=== PATIENT | female | born 1995 | race African-American/Black ===

== ENCOUNTER 2022-04-16 07:21 | Outpatient (RCR) | payer OTHER, SELFPAY ==
[2022-04-14 11:07] LABS: Beta HCG Quantitative < 2.39 mIU/ML
[2022-04-16 08:14] LABS: Beta HCG Quantitative < 2.39 mIU/ML
== END 2022-07-13 23:59 | disposition home or self-care (01) ==
LOC: ANHLAB 07:21
PROVIDERS: Visit Provider Obstetrics & Gynecology Gynecology
DX: O26.851 Spotting complicating pregnancy, first trimester (principal); Z3A.00 Weeks of gestation of pregnancy not specified
CPT/HCPCS: 36415; 84702

== ENCOUNTER 2022-08-25 14:06 | Outpatient (CLI) | payer OTHER, SELFPAY | END 2022-08-25 14:07 | disposition home or self-care (01) | LOC: ANHLAB 14:07 | PROVIDERS: Visit Provider Obstetrics & Gynecology | DX: Z32.01 Encounter for pregnancy test, result positive (principal); Z3A.00 Weeks of gestation of pregnancy not specified | CPT/HCPCS: 36415; 84702 ==

== ENCOUNTER 2022-08-27 13:43 | Outpatient (CLI) | payer OTHER, SELFPAY ==
[2022-08-31 04:22] LABS: Progesterone 5.8 ng/mL (***)
== END 2022-08-27 13:44 | disposition home or self-care (01) ==
PROVIDERS: PCP Registered Nurse; Visit Provider Obstetrics & Gynecology
DX: O09.299 Supervision of pregnancy with other poor reproductive or obstetric history, unspecified trimester (principal); Z3A.00 Weeks of gestation of pregnancy not specified
CPT/HCPCS: 36415; 84144; 84702

== ENCOUNTER 2022-08-28 11:16 | Outpatient (CLI) | payer OTHER, SELFPAY ==
--- NOTE | ~2022-08-28 | US_ITS ---
Pelvic ultrasound. Clinical History: First trimester , inconclusive viability Technique: Realtime transabdominal and transvaginal scanning of the pelvis was performed. Color flow Doppler and Doppler spectral analysis were performed. Findings: The uterus is anteverted. There is an early intrauterine gestational sac. Average sac diame ter of 8 mm corresponds to an estimated gestational age of 5 weeks 4 days. No definite pole or yolk sac seen at this time. The right ovary measures 2.3 x 1.5 x 1.6 cm. No significant right ovarian or adnexal mass is seen. V ascular flow present in the right ovary on Doppler spectral analysis. The left ovary is not visualized. No significant left ovarian or adnexal mass is seen. There is no evidence of free fluid in the cul de sac. Impression: Intrauterine gestational sac with estimated gestational age of 5 weeks 4 days by average sac diameter . No visible pole or yolk sac. This could be commensurate with the early gestational age, and r epresent an early normal . Blighted ovum or missed are not excluded. Continued foll ow-up with serial beta hCG should be considered. Short-term follow-up ultrasound in approximately 1 w [place] to reassess for development of cardiac activity/ pole should also be considered. Reviewed, dictated and finalized at location M. Impression: Intrauterine gestational sac with estimated gestational age of 5 weeks 4 days b y average sac diameter. No visible pole or yolk sac. This could be commen surate with the early gestational age, and represent an early normal . Blighted ovum or missed are not excluded. Continued follow-up with se rial beta hCG should be considered. Short-term follow-up ultrasound in approxim ately 1 week to reassess for development of cardiac activity/ pole should also be considered.
== END 2022-08-28 11:17 ==
PROVIDERS: PCP Obstetrics & Gynecology; Visit Provider Obstetrics & Gynecology
DX: O36.80X0 Pregnancy with inconclusive fetal viability, not applicable or unspecified (principal); Z3A.01 Less than 8 weeks gestation of pregnancy
CPT/HCPCS: 76801; 76817

== ENCOUNTER → 2022-09-04 08:35 | Outpatient (CLI) | payer OTHER, SELFPAY ==
--- NOTE | ~2022-09-04 | US_ITS ---
Pelvic ultrasound. Clinical History: First trimester , abnormal ultrasound finding on screening COMPARISON: 08/28/2022 Technique: Realtime transabdominal and transvaginal scanning of the pelvis was performed. Color flow Doppler and Doppler spectral analysis were performed. Findings: The uterus is anteverted, and contains an intrauterine gestation. Average sac diameter 1.2 cm corresponds to an estimated gestational age of 6 weeks 0 days. No definite pole or yolk sac identified. Neither ovary seen. No adnexal mass seen. There is no evidence of free fluid in the cul de sac. Impression: Intrauterine gestational sac with estimated gestational age of 6 weeks 0 days by average sac diameter , but no visible pole or yolk sac. This raises suspicion for blighted ovum/missed . Ear ly normal remains possible, though felt to be less likely. Correlate clinically. Reviewed, dictated and finalized at [facility]. Impression: Intrauterine gestational sac with estimated gestational age of 6 weeks 0 days b y average sac diameter, but no visible pole or yolk sac. This raises susp icion for blighted ovum/missed . Early normal remains possibl e, though felt to be less likely. Correlate clinically.
== END ==
PROVIDERS: PCP Registered Nurse; Visit Provider Obstetrics & Gynecology
DX: O28.3 Abnormal ultrasonic finding on antenatal screening of mother (principal); Z3A.01 Less than 8 weeks gestation of pregnancy
CPT/HCPCS: 76801; 76817

== ENCOUNTER 2022-09-04 10:08 | Outpatient (CLI) | payer OTHER, SELFPAY | END 2022-09-04 10:09 | disposition home or self-care (01) | PROVIDERS: PCP Registered Nurse; Visit Provider Obstetrics & Gynecology | DX: O28.3 Abnormal ultrasonic finding on antenatal screening of mother (principal); Z3A.00 Weeks of gestation of pregnancy not specified | CPT/HCPCS: 36415; 84702 ==

== ENCOUNTER 2022-09-10 01:18 | Day surgery (SDC) | payer OTHER, SELFPAY ==
[2022-09-05 09:00] VITALS: BMI 37.0
--- NOTE | 2022-09-05 09:02 | PC.NURSE ---
Report to the Outpatient Waiting Room, entrance under the green pavilion located off [facility], at time _0630_ on date _09/10/2022_. Planned Procedure Time: _0830_. Time changes happen often and if your time is changed the preop area will call you the afternoon before. - You and your visitor will be asked to self-screen and do not enter if you have any COVID symptoms. - Only one visitor is requested with a max of two and NO children visitors are allowed at this time. - The patient visitor may be requested to leave or wait in car when not with patient due to distancing restrictions. - A mask is optional within the hospital at this time. Patients may have clear liquids (water, carbonated beverages, clear teas, apple juice) until 3 hours prior to surgery with a maximum of 20 ounces. - No food from midnight until time of surgery Take the following medications with a SIP of water the morning of surgery: __Inhaler DO NOT STOP ANY OF YOUR OTHER PRESCRIPTION MEDICATIONS PRIOR TO SURGERY ?EXCEPT THE FOLLOWING Medications to discontinue per physician None Date to take last dose Please no make-up, nail canadian, hairspray, perfume, deodorant, or body powder the day of surgery. No jewelry (including any body piercings) or valuables the day of surgery, leave them at home. Please take a shower or bath the night before, or the morning of, surgery with an antibacterial soap. Wear comfortable, loose fitting clothing. - Jewelry must be removed prior to entering the operating room. Rings and piercings that are not removed may be cut off. - The hospital will not accept responsibility for valuables. - Please leave all valuables, including medications, at home the day of surgery. If you are going home after surgery, a licensed route delivery driver must drive you home. - NO public transportation without another adult if you receive anesthesia. - We recommend that an adult stay with you for 24 hours following discharge. - We also recommend that you do not drive, make important decision, drink alcoholic beverages, or take any drugs that were not prescribed by your health care provider for at least 24 hours after your discharge time. Follow any additional instructions given to you from your surgeon. If you or anyone in your household have experienced Covid symptoms in the past week, please notify your surgeon or the nurse liaison at the phone number below for possible testing. Telephone instructions given to _Patient____and asked if any additional questions and then verbalized understanding. Patient advised to call surgeon office or pre surgery nurse liaison [phone] if any additional questions.
--- NOTE | 2022-09-09 12:57 | P.PNAN_ITS ---
Anes - Initial Pre Proc Eval Procedure: Operation Date: 09/10/22 08:30 Proposed Procedures p Suction Dilation and Curettage - Kyler Sanchez MD Date/Time: 09/09/22 12:57 Surgeon: Kyler Sacnhez MD Pre Op Diagnosis: Blighted Ovum Patient Data Age: 27 Gender: F Height: 1.68 m Weight: 104 kg Allergies Allergy/AdvReac Type Severity Reaction Status Date / Time hydrogen peroxide Allergy Mild Swelling Verified 09/10/22 07:19 lidocaine Allergy Mild Unknown Verified 09/10/22 07:16 Penicillins Allergy Mild Unknown Verified 09/10/22 07:16 Home Medications Medication Instructions Recorded Confirmed Type albuterol sulfate 90 mcg/actuation 1 puff inhalation Q4H PRN Dyspnea 05/05/22 09/10/22 History aerosol inhaler beclomethasone dipropionate 40 1 inh inhalation Q12H 09/04/22 09/10/22 History mcg/actuation HFA breath activated aerosol (Qvar RediHaler) Patient hx anesthesia problems: none Family hx anesthesia problems: none Results Review: All pre-operative results and documents have been reviewed as part of the pre- operative evaluation. [facility] Past Medical History Medical History (Updated 09/10/22 @ 07:53 by Jalen Long MD) Allergies Asthma History of spontaneous History of vaginal delivery Morbid obesity with BMI of 45.0-49.9, adult Family History Family History Other Alcoholism Asthma Breast cancer Social History Social History Smoking status: Never smoker Alcohol intake: never Substance use: never Substance use type: does not use Living arrangements: with family Spiritual care concerns: No Anes - Eval Final PreProcedure Day of Procedure 09/09/22 12:57 Patient weight: morbidly obese Heart: regular rate and rhythm Lungs: clear to auscultation and normal air movement Airway: Mallampati scale class II Neurological: alert and oriented Last oral intake: >/= 8 hours ASA classification: III Emergent: no Anesthetic plan: proceed Anesthesia type and monitoring: general GIVS and LMA Results Review: All pre-operative results and documents have been reviewed as part of the pre- operative evaluation. Informed Consent: The patient's anesthetic plan and its attendant risks and benefits were discussed with the patient/family/POA. Questions were solicited and answers provided to the satisfaction of the patient/family/POA.
[2022-09-10 06:59] VITALS: BP 130/69; PULSE 87; RESP 16; TEMP 36; O2SAT 98
[2022-09-10] MEDS: ACETAMINOPHEN 500 MG TABLET 1000 MG PO (07:38)
[2022-09-10] MEDS: LACTATED RINGERS 1,000 ML 30 ML IV CONT (07:38)
--- NOTE | 2022-09-10 08:12 | PM.IMHP ---
H&P: [facility] History of Present Illness Date/Time: 09/10/22 08:12 Chief Complaint: Nonviable Narrative: She is a with abnormally rising HCG levels and subsequent ultrasounds showing gestational sac. Findings consistent with blighted ovum. She has been counseled regarding options of expectant managment vs misoprostol vs D and C and has opted for D and C. Review of Systems Review of Systems: All systems reviewed & are unremarkable except as noted in HPI and below Constitutional: Constitutional: Reports no additional constitutional complaints Eyes: Eyes: Reports no additional eye complaints Cardiovascular: Cardiovascular: Reports no additional cardiovascular complaints Respiratory: Respiratory: Reports no additional respiratory complaints Gastrointestinal: Gastrointestinal: Reports no additional gastrointestinal complaints Genitourinary: Genitourinary: Reports no additional female genitourinary complaints and Reports as per HPI Integumentary/Breasts: Skin/Breast: Reports system reviewed and no additional complaints, except as docu Neurologic: Reports system reviewed and no additional complaints, except as documented Psychiatric: Psychiatric: Reports no additional psychiatric complaints Hematologic/Lymphatic: Hematologic/Lymphatic: Reports no additional hematologic/lymphatic complaints [facility] Past Medical History Medical History Allergies Asthma History of spontaneous History of vaginal delivery Morbid obesity with BMI of 45.0-49.9, adult Family History Family History Other Alcoholism Asthma Breast cancer Social History Social History Smoking status: Never smoker Alcohol intake: never Substance use: never Substance use type: does not use Living arrangements: with family Spiritual care concerns: No Meds Home Medications and Allergies Home Medications Medication Instructions Recorded Confirmed Type albuterol sulfate 90 mcg/actuation 1 puff inhalation Q4H PRN Dyspnea 05/05/22 09/10/22 History aerosol inhaler beclomethasone dipropionate 40 1 inh inhalation Q12H 09/04/22 09/10/22 History mcg/actuation HFA breath activated aerosol (Qvar RediHaler) Allergies Allergy/AdvReac Type Severity Reaction Status Date / Time hydrogen peroxide Allergy Mild Swelling Verified 09/10/22 07:19 lidocaine Allergy Mild Unknown Verified 09/10/22 07:16 Penicillins Allergy Mild Unknown Verified 09/10/22 07:16 Vital Signs Vital Signs - 24 hr 09/10/22 06:59 Temperature 96.8 F L Pulse Rate 87 Respiratory Rate 16 Blood Pressure 130/69 Pulse Oximetry 98 Oxygen Delivery Room Air Exam Const: General: comfortable and no acute distress Orientation/consciousness: oriented to person, oriented to place and oriented to time Eyes: General: appearance normal, both eyes and all related structures Neck: Neck: normal visual inspection Resp: Effort & Inspection: normal respiratory effort Auscultation: clear to auscultation bilaterally Cardio: Rate: regular rate Rhythm: regular rhythm GI: Inspection: normal to inspection GI Palp: No abdominal tenderness and Yes No hepatosplenomegaly present : External Female Exam: normal external appearance Speculum Exam - Vagina: normal appearance of the vagina Speculum Exam - Cervix: normal appearance of the cervix Bimanual exam- vagina & uterus: normal bimanual exam, uterine mobility normal, uterine shape normal and non-tender Bimanual Exam- Adnexa, other: no masses and No adnexal tenderness Skin: General skin exam: normal color Neuro: General: oriented to person, oriented to place and oriented to time Psych: Appearance: grossly normal Assessment and Plan Assessment and plan (1) Blighted ovum: Code(s): O02.0 - Blighted ovum and nonhydatidiform
--- NOTE | 2022-09-10 08:16 | WPDHPUPDATE1 ---
History and Physical Update Update Date/Time: 09/10/22 08:16 History and Physical has been reviewed, including an updated exam of the patient. There are NO changes in the patient's condition. Risks, benefits, and alternatives have been discussed and questions answered. Patient agrees to proceed with procedure.
--- NOTE | 2022-09-10 08:38 | PHAR ---
CALLED PRE-OP ABOUT LIDOCAINE ALLERGY W/LIDOCAINE ORDER. OR WILL CHECK WITH MD BEFORE ADMINISTRATION.
[2022-09-10] MEDS: ceFAZolin 3 GM/D5W 100 ML 100 ML IVPB (08:48)
[2022-09-10] MEDS: KETOROLAC 30 MG/ML VIAL (*BKC) IV PUSH (09:06)
[2022-09-10 09:18] VITALS: BP 123/67; PULSE 75; RESP 16; O2SAT 98
[2022-09-10] MEDS: oxyCODONE HCL (*CRX) 5 MG TAB IR PO (09:44)
[2022-09-10 09:45] VITALS: BP 112/58; PULSE 72
[2022-09-10 10:10] VITALS: BP 103/60; PULSE 67
--- NOTE | 2022-09-10 14:24 | W.PM.PROC2 ---
Procedure Note - Detailed Date of Procedure 09/10/22 Pre-op Diagnosis Blighted Ovum Post-op Diagnosis Same Procedure Performed Suction dilation and curettage Surgeon Kyler Sanchez MD Anesthesia MAC and Local Indications abnormally rising HCG levels and empty gestational sac consistent with blighted ovum Findings uterus sound to 9 cm Description of Procedure after informed consent was obtained patient was taken to operating room and adequate IV sedation was administered. She was placed in high lithotomy position and prepped and draped in sterile fashion. Attention was turned to the vagina speculum was inserted single-tooth tenaculum placed on anterior lip of the cervix due to her allergy to lidocaine a cervical block was not performed. The cervix was dilated to an 8 Melgar dilator. A size 8 suction curette was passed until no tissue was obtained. There was a small amount of tissue. The uterine cavity was sharply curetted. The suction was passed again due to feeling residual tissue at the fundus. The cavity was sharply curetted again and good cry was noted in all quadrants. Hemostasis was noted at the cervix single-tooth tenaculum removed hemostasis was noted at this site. Speculum was removed sponge count was correct. Patient tolerated procedure well and was taken to recovery in stable condition. Estimated Blood Loss 50 Drains No Packing No Pathology Yes ( Products of conception) Complications No immediate complications Condition Stable Disposition Same day [facility] Billing Surgery - Charge Forward: Surgery Billing
== END 2022-09-10 10:13 | disposition home or self-care (01) ==
PROVIDERS: PCP Registered Nurse; Visit Provider Obstetrics & Gynecology
PROC: (CPT 59820; principal; 2022-09-10 08:30)
DX: O02.0 Blighted ovum and nonhydatidiform mole (principal); J45.909 Unspecified asthma, uncomplicated; Z79.51 Long term (current) use of inhaled steroids
CPT/HCPCS: 59820; 36415; 85461; 86850; 86900; 86901; 88305; A9270; J0690; J1885; J2250; J2704; J3010; J7120

== ENCOUNTER 2022-10-04 06:55 | Emergency (ER) | payer OTHER, SELFPAY ==
--- NOTE | ~2022-10-04 | US_ITS ---
EXAMINATION: US OB transvaginal DATE: 10/04/2022 08:07 INDICATION: Vaginal bleeding, concern for retained products of conception TECHNIQUE: Real-time pelvic transabdominal and transvaginal ultrasound was performed. COMPARISON: 09/04/2022 FINDINGS: There are fluid and soft tissue material in the endometrial canal. The soft tissue componen t demonstrates minimal vascularity. The right ovary measures 2.7 x 1.8 x 1.6 cm. The left ovary measu res 2.3 x 1.3 x 1.5 cm. There is normal vascular flow in the ovaries. There is a small amount of free fluid in the pelvis. IMPRESSION: 1. Complex fluid collection in the endometrial canal with some evidence of vascularity, concerning fo r retained products of conception. Reviewed, dictated and finalized at location A. IMPRESSION: 1. Complex fluid collection in the endometrial canal with some evidence of vasc ularity, concerning for retained products of conception.
[2022-10-04 06:58] VITALS: BP 140/112; PULSE 91; RESP 18; TEMP 35.9; O2SAT 98
--- NOTE | 2022-10-04 08:14 | PC.NURSE ---
Pt said not able to urinate at this time.
[2022-10-04 08:21] LABS: Basophils Absolute Auto 0.1 K/mm3 (0.0-0.1); Basophils Percent Auto 0.8 % (0.2-1.2); Eosinophils Absolute Auto 0.1 K/mm3 (0-0.3); Hematocrit 40.5 % (37.0-47.0); Hemoglobin 13.3 g/dL (12.0-15.0); Immature Granulocyte Absolute 0.01 K/mm3 (0.00-0.031); Immature Granulocyte Percent A 0.2 % (0-0.5); Lymphocytes Absolute Auto 2.15 K/mm3 (0.9-3.2); Lymphocytes Percent Auto 36.3 % (18.3-44.2); Mean Corpuscular HGB Conc 32.8 g/dl (32-36); Mean Corpuscular Volume 85.3 fl (80-100); Mean Platelet Volume 11.3 fl (7.4-10.4); Monocytes Absolute Auto 0.5 K/mm3 (0.1-0.6); Monocytes Percent Auto 7.6 % (2.6-8.5); Neutrophils Absolute Auto 3.1 K/mm3 (1.3-6.7); Neutrophils Percent Auto 53.1 % (45.5-73.1); Platelet Count Result 205 k/mm3 (150-375); Red Blood Count 4.75 M/mm3 (4.2-5.4); Red Cell Distribution Width 13.6 % (11.5-14.5); White Blood Count 5.9 K/mm3 (4.5-10.0)
[2022-10-04 08:34] LABS: Alanine Aminotransferase 21 U/L (6-35); Albumin Level 4.5 g/dL (3.5-5.1); Alkaline Phosphatase 38 U/L (38-126); Anion Gap 7 mmol/L (8-16); Aspartate Amino Transferase 21 U/L (14-36); Bilirubin,Total 0.7 mg/dL (0.2-1.3); Blood Urea Nitrogen 10 mg/dL (7-17); Calcium 8.8 mg/dL (8.4-10.2); Carbon Dioxide 27 mmol/L (22-30); Chloride 103 mmol/L (98-107); Estimated CRCL calculation 166 ml/min; Estimated Glomerular Filt Rate > 60; Glucose 100 mg/dL (65-110); Potassium 3.8 mmol/L (3.4-5.0); Sodium 137 mmol/L (137-145)
[2022-10-04 08:40] LABS: INR 1.1
[2022-10-04 08:41] LABS: Partial Thromboplastin Time 26.9 SECONDS (22.3-36.8)
--- NOTE | 2022-10-04 08:48 | ED.GENADULT ---
HPI - General Adult General Chief complaint: Vaginal Bleeding Stated complaint: DNC 09/10. Vaginal bleeding this morning Time Seen by Provider: 10/04/22 07:26 History of Present Illness HPI narrative: 27-year-old female presented to the emergency department for evaluation of vaginal bleeding. Patient had a D&C by Dr. Sanchez on 09/10. Patient states she had been doing well but then began having increased vaginal bleeding this morning. Patient states that she feels the toilet bowl full of water and also had bleeding onto the floor. Patient states that the bleeding is still heavy. Patient is currently denying any associated lightheaded or dizziness. Patient states she is having some lower abdominal cramping. She reports that the bleeding started fairly heavily at 530 and began to improve around 630 Related Data Home Medications Medication Instructions Recorded Confirmed albuterol sulfate 90 mcg/actuation 1 puff inhalation Q4H PRN Dyspnea 05/05/22 09/10/22 aerosol inhaler beclomethasone dipropionate 40 1 inh inhalation Q12H 09/04/22 09/10/22 mcg/actuation HFA breath activated aerosol (Qvar RediHaler) Allergies Allergy/AdvReac Type Severity Reaction Status Date / Time hydrogen peroxide Allergy Mild Swelling Verified 09/10/22 07:19 lidocaine Allergy Mild Unknown Verified 09/10/22 07:16 Penicillins Allergy Mild Unknown Verified 09/10/22 07:16 Review of Systems Review of Systems: All systems reviewed & are unremarkable except as noted in HPI and below PMFSH Past Medical History Medical History Allergies Asthma History of spontaneous History of vaginal delivery Morbid obesity with BMI of 45.0-49.9, adult Family History Family History Other Alcoholism Asthma Breast cancer Social History Social History Smoking status: Never smoker Alcohol intake: never Substance use: never Substance use type: does not use Living arrangements: with family Spiritual care concerns: No Exam Narrative: APPEARANCE: Well appearing, no pain, no distress, well-nourished. HEAD: normocephalic, atraumatic. EYES: PERRLA/EOMI, conjunctivae clear. NOSE: Normal no drainage NECK: Supple. No adenopathy, no masses. RESPIRATORY: Airway patent, respirations nonlabored. Clear to auscultation bilaterally, no rales, rhonchi, wheezing. CARDIOVASCULAR: Regular rate and rhythm without murmurs rubs or gallops. ABDOMINAL: Soft, nontender, nondistended, normal bowel sounds Pelvic exam: Mild vaginal bleeding, no active hemorrhage, minimal tenderness to palpation MUSCULOSKELETAL: Moves all extremities. Strength/ROM intact, No edema, No calf tenderness. NEURO: Alert. Cranial nerves II through XII intact. Grossly intact SKIN: Warm, dry. Normal Color Course Course Emergency Course: 27-year-old female presented the emergency department for a blood patient of abdominal cramping and bleeding after D&C. Ultrasound was ordered to evaluate for products of conception. Ultrasound showed complex fluid collection in the endometrial canal with some evidence of vascularity concerning for retained products of conception. On pelvic exam patient had minimal vaginal bleeding. Patient is afebrile and is not tachycardic. Patient's blood pressure is 140/112. Patient's hemoglobin 13.3. Patient's CMP is similar to her baseline. Patient's beta hCG is 110 and is decreased from her value in August. 9:26 AM discussed the case with Dr. Solo on for CHILD CARE AIDE. He feels that the patient has stable hemoglobin, stable vitals and the bleeding only occurred from 5 30-6 30 and patient has no active bleeding in the emergency department he felt that the patient was suitable to have outpatient follow-up on Thursday to have a possible D&C scheduled at that time. Vital Signs Vital signs: Vital
[2022-10-04 08:52] LABS: Beta HCG Quantitative 110.24 mIU/ML
[2022-10-04] MEDS: SODIUM CHLORIDE 0.9% IV 1,000 ML 999 ML IV CONT (08:56)
[2022-10-04 09:45] VITALS: BP 109/74; PULSE 73; RESP 18; O2SAT 100
[2022-10-04 10:08] VITALS: BP 113/76; PULSE 66; RESP 18; O2SAT 100
== END 2022-10-04 10:11 | disposition home or self-care (01) ==
PROVIDERS: Emergency Provider Emergency Medicine; PCP Registered Nurse
DX: O03.4 Incomplete spontaneous abortion without complication (principal); J45.909 Unspecified asthma, uncomplicated; E66.01 Morbid (severe) obesity due to excess calories; Z68.42 Body mass index [BMI] 45.0-49.9, adult
CPT/HCPCS: 36415; 76817; 80053; 84702; 85025; 85610; 85730; 96360; 99284; J7030